=== PATIENT | female | born 1960 | race Caucasian/White ===

== ENCOUNTER 2022-12-06 04:00 | Emergency (ER) | payer MEDICARE, MEDICAID, SELFPAY ==
[2022-12-06 04:17] VITALS: BP 129/73; PULSE 62; RESP 18; TEMP 36.7; O2SAT 96; BMI 34.3
--- NOTE | 2022-12-06 04:44 | W.ED.FEMALGU ---
HPI - Female Genitourinary General: Chief complaint: Urogenital-Female Stated complaint: Raped\StD Time Seen by Provider: 12/06/22 04:28 History of Present Illness: Patient presents to the ER with multiple multiple complaints. Patient cannot complete a entire thought process without jumping to another thought process and telling multiple stories and rambling. It is thought patient has urinary tract like symptoms at this time. However patient states she has not been taking any of her medicine as directed so therefore she is having withdrawal type symptoms as well. Then she goes off on how she has a concussion from several months ago when she was in [place]. Review of Systems General: Reports: 10 or more systems reviewed and unremarkable except in HPI and below PFSH ED PFSH: Social History (Updated 08/22/20 @ 15:59 by Jake Cho LPN) Smoking and tobacco status: never smoked Second hand smoke exposure: No Alcohol intake: never Desire information about alcohol rehabilitation?: No Substance/Drug Use: never Desire information about substance/drug rehabilitation?: No Physical Exam Const: COMMON NORMALS: no acute distress, average body habitus, patient oriented x3, no limitations, healthy appearing, alert and well nourished HENMT: COMMON NORMALS: normocephalic, atraumatic, hearing grossly normal bilaterally, external ears normal, Normal external nose present and moist oral mucous membranes HEAD & SCALP: normocephalic and atraumatic NOSE: Normal external nose present EXTERNAL EAR: Yes external ears normal Eye: COMMON NORMALS: Equal, round and reactive pupils present, EOMs intact bilaterally, conjunctivae normal and no scleral icterus CONJUNCTIVA: Yes conjunctivae normal PUPIL: Yes Equal, round and reactive pupils present Neck/C-Spine: COMMON NORMALS: full ROM, no lymphadenopathy, supple, no meningeal signs, no JVD and Thyroid normal THYROID: Thyroid normal Chest: COMMONS NORMALS: normal inspection of the chest and normal palpation of entire chest wall Resp: COMMON NORMALS: normal respiratory effort, No retractions, No use of accessory muscles and clear to auscultation bilaterally AUSCULTATION: clear to auscultation bilaterally Cardio: COMMON NORMALS: no JVD, regular rate, regular rhythm, S1 normal heart sound present, S2 normal heart sound present, No gallops present (Cardio), No clicks present (Cardio), No murmurs present (Cardio) and No rub (Cardio) RATE: regular rate RHYTHM: regular rhythm HEART SOUNDS: S1 normal heart sound present and S2 normal heart sound present GI: COMMON NORMALS: Normal to inspection, nondistended, normoactive bowel sounds present, Soft to palpation, non-tender, No hepatosplenomegaly present and no masses PALPATION: Yes Soft to palpation and Yes No hepatosplenomegaly present Neuro: COMMON NORMALS: patient oriented x3 SENSORIUM/ORIENTATION: Yes alert MENINGEAL SIGNS: Yes no meningeal signs Course Vital Signs: Vital signs: Vital Signs Temperature 98.0 F 12/06/22 04:17 Pulse Rate 62 12/06/22 04:17 Respiratory Rate 18 12/06/22 04:17 Blood Pressure 129/73 12/06/22 04:17 Pulse Oximetry 96 12/06/22 04:17 Oxygen Delivery Me thod Room Air 12/06/22 04:17 MDM - Female Medical Decision Making Urinalysis was obtained on this patient which did show positive leukocyte esterase and white blood cells. Patient will be treated for urinary tract infection. It was discussed with patient she needs to back all of her medicine consistently. Patient should follow-up with her PCP within the next 7 days or sooner as needed. Differential Diagnosis Unlikely abdominal pain, acute appendicitis, calculus of kidney, constipation, diverticulitis, endometriosis, gastroenteritis, pancreatitis or small bowel obstruction Medical Records I reviewed the patient's medical records. Lab Data I reviewed the patient's lab results. Laboratory Results Urine Color Yellow (Yellow) 12/06/22 04:42 Urine Appearance Sl hazy (CLEAR) A 12/06/22 04:42 Urine pH 6.5 (5-7) 12/06/22 04:42 Ur Specific Zeigler 1.015 (1.005-1.030) 12/06/22 04:42 Urine Protein Neg (Negative) 12/06/22 04:42 Urine Glucose (UA) Norm (Normal) 12/06/22 04:42 Urine Ketones Negative (Negative) 12/06/22 04:42 Urine Blood Trace (Negative) H 12/06/22 04:42 Urine Nitrate Negative (Negative) 12/06/22 04:42 Urine Bilirubin Neg (Negative) 12/06/22 04:42 Urine Urobilinogen Neg mg/dL (Negative) 12/06/22 04:42 Ur Leukocyte Esterase 1+ (Negative) H 12/06/22 04:42 Urine RBC 5-10 /hpf (0-2) H 12/06/22 04:42 Urine WBC 5-10 /hpf (0-5) H 12/06/22 04:42 Ur Squamous Epith Cells 0-4 /hpf (0-5) H 12/06/22 04:42 Amorphous Sediment Not Reportable 12/06/22 04:42 Urine Bacteria Trace /hpf (NONE) 12/06/22 04:42 Urine Mucus 1+ /hpf 12/06/22 04:42 Discharge Plan Discharge Patient Disposition: Home Clinical Impression: Urinary tract infection Qualifiers: Urinary tract infection type: acute cystitis Hematuria presence: with hematuria Qualified Code(s): N30.01 - Acute cystitis with hematuria Condition: Stable Prescriptions: New ciprofloxacin HCl 500 mg tablet 500 mg PO BID Qty: 20 0RF No Action simvastatin 10 mg tablet 10 mg PO DAILY pantoprazole 20 mg tablet,delayed release (DR/EC) 20 mg PO DAILY meloxicam 7.5 mg tablet 7.5 mg PO DAILY Zyrtec 10 mg capsule 10 mg PO DAILY PRN paroxetine HCl 10 mg tablet 10 mg PO DAILY cephalexin 500 mg tablet 500 mg PO BID 5 Days Qty: 10 0RF Discharge Orders: Discharge ED (Routine); Ordered 12/06/22 Ordered By: Erick Urbina Patient Instructions: Urinary Tract Infection - Women Activity Restrictions/Additional Instructions: Please take all your medicine as directed. Please follow-up with your family practice physician within the next 7 days or sooner as needed for further evaluation and treatment. 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
[2022-12-06 05:01] LABS: Glucose Urine UA Norm (Normal); Ketones Urine Negative (Negative); Protein Urine Neg (Negative); Specific Gravity, Urine 1.015 (1.005-1.030); Urine Appearance SL Hazy (CLEAR); Urine Color Yellow (Yellow); pH Urine 6.5 (5-7)
[2022-12-06 05:02] LABS: Add Urine Microscopic? YES; Bacteria Urine TRACE /hpf; Bilirubin Urine Neg (Negative); Blood Urine Trace (Negative); Leukocyte Esterase Urine 1+ (Negative); Mucus Urine 1+ /hpf; Nitrate Urine Negative (Negative); Squamous Epithelial Cell Urine 0-4 /hpf (0-5); Urobilinogen Urine Neg (Negative)
[2022-12-06 05:03] LABS: Add Urine Culture? No
[2022-12-06 05:17] VITALS: BP 118/61; PULSE 64; RESP 16
== END 2022-12-06 05:18 | disposition home or self-care (01) ==
PROVIDERS: Emergency Provider Emergency Medicine
DX: N30.01 Acute cystitis with hematuria (principal)
CPT/HCPCS: 81001; 99283

== ENCOUNTER 2022-12-07 10:36 | Outpatient (CLI) | payer MEDICARE, MEDICAID, SELFPAY ==
--- NOTE | 2022-12-07 11:00 | MM_ITS ---
WS: [id number] BILATERAL SCREENING DIGITAL TOMOSYNTHESIS MAMMOGRAM WITH CAD HISTORY: SCREENING COMPARISON: None available. Bilateral CC and MLO views with tomosynthesis and synthetic mammography submitted. Computer aided det ection analyzed. Quality of the exam and is limited. Poor compression. Breast composition: The breasts are heterogeneously dense, which may obscure small masses. No suspici ous masses, microcalcifications or architectural distortion. IMPRESSION: MM/[place] [id number] BI-RADS: 2-Benign FOLLOW UP: 1 Year Follow-up
== END 2022-12-07 10:37 | disposition home or self-care (01) ==
LOC: RAD 10:43
PROVIDERS: PCP Family Medicine; Visit Provider Family Medicine
DX: Z12.31 Encounter for screening mammogram for malignant neoplasm of breast (principal)
CPT/HCPCS: 77063; 77067